=== PATIENT | female | born 1990 | race African-American/Black ===

== ENCOUNTER 2023-10-27 01:31 | Day surgery (SDC) | payer OTHER ==
[2023-10-27 01:51] VITALS: BMI 31.1
[2023-10-27] MEDS ORDERED: hydrALAZINE 20 MG/ML VIAL SLOW IVP PRN (02:09)
[2023-10-27 02:45] LABS: Bilirubin Neg (Negative); Blood, Urine Negative (Negative); Clarity Clear (Clear); Glucose, Urine (Dipstick) Normal (Negative); Ketone, Urine Negative (Negative); Leukocyte 100 (Negative); Nitrite Negative (Negative); Protein, Urine (Dipstick) Negative (Neg-Trace)
[2023-10-27 02:53] LABS: Bacteria/HPF None Seen HPF (None Seen); CAUTI Indications for Culture Pregnancy; RBC/HPF None Seen HPF (0-3); Squamous Epithelial 0-3 HPF (0-3)
[2023-10-27 02:54] LABS: Urine Culture Reflex Yes Yes
[2023-10-27 03:06] LABS: Creatinine, Urine 60.48 mg/dL (47-110); Protein, Urine Random Quant Less than 10 mg/dL (1-14)
[2023-10-27 03:20] LABS: #Basophils 0.01 10x3/uL (0.0-0.2); #Eosinphils 0.03 10x3/uL (0.0-0.5); #Monocytes 0.68 10x3/uL (0.0-1.1); #Neutrophils 3.96 10x3/uL (1.5-8.4); %Basophils 0.2 % (0.0-2.0); %Eosinophils 0.5 % (0.0-6.0); %Lymphocytes 20.4 % (18.0-47.0); %Monocytes 11.5 % (0.0-10.0); %Neutrophils 66.9 % (40.0-75.0); Hematocrit 24.7 % (34.9-44.5); Hemoglobin 8.2 g/dL (12.0-15.5); Mean Corpuscular HGB CONC 33.2 g/dL (32.0-36.0); Mean Corpuscular Hemoglobin 26.5 pg (27.0-33.0); Mean Corpuscular Volume 79.9 fl (81.6-98.3); Platelet Count 269 10x3/uL (150-450); Red Blood Cell (RBC) Count 3.09 10x6/uL (3.90-5.03); White Blood Cell (WBC) Count 5.9 10x3/uL (3.5-10.5)
[2023-10-27 03:22] LABS: ALT (SGPT) 9 U/L (8-55); AST (SGOT) 17 U/L (5-34); Albumin 2.4 g/dL (3.5-5.0); Alkaline Phosphatase 125 U/L (40-110); Anion Gap 11 mmol/L (10-20); BUN (Urea Nitrogen) 4 mg/dL (7.0-18.7); Bilirubin, Total 0.2 mg/dL (0.2-1.2); Calc. Creatinine Clearance 195 mL/min (70-130); Calcium 8.5 mg/dL (7.8-10.44); Carbon Dioxide 19 mmol/L (22-29); Chloride 108 mmol/L (98-107); Estimated GFR 125; Globulin 3.8 g/dL (2.4-3.5); Glucose 100 mg/dL (70-105); Potassium 3.4 mmol/L (3.5-5.1); Protein, Total 6.2 g/dL (6.0-8.3); Sodium 135 mmol/L (136-145)
== END 2023-10-27 03:49 | disposition home or self-care (01) ==
LOC: CSHLD/OP 01:31
PROVIDERS: ATTEND Family Medicine
DX: O99.891 Other specified diseases and conditions complicating pregnancy (principal); O47.03 False labor before 37 completed weeks of gestation, third trimester; R51.9 Headache, unspecified; O34.13 Maternal care for benign tumor of corpus uteri, third trimester; D25.9 Leiomyoma of uterus, unspecified; O99.013 Anemia complicating pregnancy, third trimester; O00.01 Abdominal pregnancy with intrauterine pregnancy; O09.213 Supervision of pregnancy with history of pre-term labor, third trimester; O10.913 Unspecified pre-existing hypertension complicating pregnancy, third trimester; Z91.018 Allergy to other foods; Z3A.36 36 weeks gestation of pregnancy
CPT/HCPCS: 36415; 80053; 81001; 82570; 84156; 85025; 87086; 99285

== ENCOUNTER 2023-10-28 23:30 | Day surgery (SDC) | payer OTHER ==
[2023-10-29] MEDS ORDERED: hydrALAZINE 20 MG/ML VIAL SLOW IVP PRN (00:17)
[2023-10-29 00:58] LABS: Creatinine, Urine 66.62 mg/dL (47-110); Protein, Urine Random Quant Less than 10 mg/dL (1-14)
[2023-10-29 01:09] LABS: #Basophils 0.01 10x3/uL (0.0-0.2); #Eosinphils 0.03 10x3/uL (0.0-0.5); #Monocytes 0.63 10x3/uL (0.0-1.1); #Neutrophils 4.06 10x3/uL (1.5-8.4); %Basophils 0.2 % (0.0-2.0); %Eosinophils 0.5 % (0.0-6.0); %Lymphocytes 19.1 % (18.0-47.0); %Monocytes 10.7 % (0.0-10.0); %Neutrophils 69.2 % (40.0-75.0); Hematocrit 25.1 % (34.9-44.5); Mean Corpuscular HGB CONC 31.9 g/dL (32.0-36.0); Mean Corpuscular Hemoglobin 25.6 pg (27.0-33.0); Mean Corpuscular Volume 80.2 fl (81.6-98.3); Mean Platelet Volume 10.4 fl (7.4-10.4); Platelet Count 243 10x3/uL (150-450); RBC Distribution Width 15.2 % (11.5-14.5); Red Blood Cell (RBC) Count 3.13 10x6/uL (3.90-5.03); White Blood Cell (WBC) Count 5.9 10x3/uL (3.5-10.5)
[2023-10-29 01:12] LABS: ALT (SGPT) 9 U/L (8-55); AST (SGOT) 18 U/L (5-34); Albumin 2.4 g/dL (3.5-5.0); Alkaline Phosphatase 125 U/L (40-110); Anion Gap 12 mmol/L (10-20); BUN (Urea Nitrogen) 4 mg/dL (7.0-18.7); Bilirubin, Total 0.3 mg/dL (0.2-1.2); Calc. Creatinine Clearance 0 mL/min (70-130); Calcium 8.5 mg/dL (7.8-10.44); Carbon Dioxide 19 mmol/L (22-29); Chloride 108 mmol/L (98-107); Estimated GFR 124; Globulin 3.8 g/dL (2.4-3.5); Glucose 110 mg/dL (70-105); Potassium 3.3 mmol/L (3.5-5.1); Protein, Total 6.2 g/dL (6.0-8.3); Sodium 136 mmol/L (136-145)
[2023-10-29] MEDS: Acetaminophen 500 MG TAB PO SCH (01:34)
[2023-10-29] MEDS: Potassium Chloride 20 MEQ TAB PO SCH (01:34)
== END 2023-10-29 02:20 | disposition home or self-care (01) ==
LOC: CSHLD/OP 23:30
PROVIDERS: ATTEND Family Medicine
DX: R51.9 Headache, unspecified (principal); O10.913 Unspecified pre-existing hypertension complicating pregnancy, third trimester; O34.13 Maternal care for benign tumor of corpus uteri, third trimester; D25.9 Leiomyoma of uterus, unspecified; O99.013 Anemia complicating pregnancy, third trimester; O00.01 Abdominal pregnancy with intrauterine pregnancy; Z3A.36 36 weeks gestation of pregnancy; Z91.018 Allergy to other foods
CPT/HCPCS: 36415; 80053; 82570; 84156; 85025

== ENCOUNTER 2023-11-02 10:31 | Day surgery (SDC) | payer OTHER ==
[2023-11-02] MEDS ORDERED: Acetaminophen 500 MG TAB ONE (10:48)
[2023-11-02] MEDS ORDERED: Iron Sucrose Complex 500 MG in Sodium Chloride 0.9% 250 ML 250 ML IVPB SCH (11:00)
[2023-11-02] MEDS ORDERED: Acetaminophen 500 MG TAB PO SCH (11:00)
== END 2023-11-02 15:10 | disposition home or self-care (01) ==
LOC: CSHSDC 10:31
PROVIDERS: ATTEND Family Medicine
DX: O99.019 Anemia complicating pregnancy, unspecified trimester (principal); Z3A.00 Weeks of gestation of pregnancy not specified; Z91.018 Allergy to other foods
CPT/HCPCS: 96365; 96366; J1756; J7050

== ENCOUNTER 2023-11-07 19:00 | Inpatient (IN) | payer OTHER ==
[2023-11-07] MEDS ORDERED: Misoprostol 200 MCG TAB PR PRN (22:52)
[2023-11-07] MEDS ORDERED: hydrALAZINE 20 MG/ML VIAL SLOW IVP PRN (22:52)
[2023-11-07] MEDS ORDERED: Ibuprofen 800 MG TAB PO PRN (22:52)
[2023-11-07] MEDS ORDERED: Tranexamic Acid 1,000 MG/10 ML VIAL IVP PRN (22:52)
[2023-11-07] MEDS ORDERED: Lidocaine 1% (PF) 30 ML VIAL SC PRN (22:52)
[2023-11-07] MEDS ORDERED: Acetaminophen 500 MG TAB PO PRN (22:52)
[2023-11-07] MEDS ORDERED: Promethazine HCl 25 MG/ML VIAL IM PRN (22:52)
[2023-11-07] MEDS ORDERED: Carboprost 250 MCG/ML AMP IM PRN (22:52)
[2023-11-07] MEDS ORDERED: Ondansetron PF 4 MG/2 ML Vial IVP PRN (22:52)
[2023-11-07] MEDS ORDERED: Diphenoxylate HCl/Atropine Tablet PO PRN (22:52)
[2023-11-07 22:55] VITALS: BMI 30.2
[2023-11-07] MEDS ORDERED: Oxytocin 30 units/NS 500 ML 500 ML IV SCH ×3 (23:00)
[2023-11-08 00:03] LABS: Hematocrit 29.2 % (34.9-44.5); Hemoglobin 9.2 g/dL (12.0-15.5); Mean Corpuscular HGB CONC 31.5 g/dL (32.0-36.0); Mean Corpuscular Hemoglobin 25.8 pg (27.0-33.0); Mean Platelet Volume 10.7 fL (7.4-10.4); Platelet Count 295 10x3/uL (150-450); RBC Distribution Width 17.8 % (11.5-14.5); Red Blood Cell (RBC) Count 3.56 10x6/uL (3.90-5.03); White Blood Cell (WBC) Count 5.9 10x3/uL (3.5-10.5)
[2023-11-08] MEDS: Penicillin G Potassium 5 MILL.UNITS in Sodium Chloride 0.9% 100 ML IVPB SCH (00:15)
[2023-11-08] MEDS: Misoprostol 100 MCG TAB VAG SCH (00:19)
[2023-11-08 00:26] LABS: Syphilis Antibody Nonreactive (Nonreactive); Syphilis Antibody Index 0.06 S/CO (<1.00 Non-Reactive)
[2023-11-08 00:27] LABS: HBsAg Index 0.19 S/CO (0-0.99); Hep B Surf Ag - L&D Non-Reactive S/CO (NonReactive)
[2023-11-08] MEDS: Penicillin G 2.5 MILL.units 2.5 MILL.UNITS in Premix 1 BAG IVPB SCH (04:01)
[2023-11-08] MEDS: Lactated Ringer's 1,000 ML IV SCH (08:09)
[2023-11-08] MEDS: fentaNYL 50 mcg/mL 1 mL Vial SLOW IVP PRN (13:02)
[2023-11-08] MEDS: fentaNYL/Ropivacaine Epidural 100 ML ONE (16:50)
[2023-11-08] MEDS ORDERED: Naloxone HCl 0.4 mg/ml Vial IVP PRN ×2 (17:06)
[2023-11-08] MEDS ORDERED: diphenhydrAMINE 50 MG/ML VIAL IVP PRN (17:06)
[2023-11-08] MEDS ORDERED: Moisturizing Cream (Eucerin) 113 GM JAR TOP PRN (17:06)
[2023-11-08] MEDS ORDERED: Promethazine HCl 25 MG/ML VIAL IM PRN (17:06)
[2023-11-08] MEDS ORDERED: ePHEDrine Sulfate 50 MG/10 ML VIAL SLOW IVP PRN (17:06)
[2023-11-08] MEDS ORDERED: Lactated Ringer's 500 ML IV PRN (17:06)
[2023-11-08] MEDS ORDERED: Ondansetron PF 4 MG/2 ML Vial IVP PRN (17:06)
[2023-11-08] MEDS ORDERED: Communication Order-Pharmacy FS SCH (17:15)
[2023-11-08] MEDS ORDERED: fentaNYL 2 mcg/Ropivacaine 0.2% Epidural 100 ML CADD EPIDURAL SCH (17:15)
[2023-11-08] MEDS ORDERED: hydrALAZINE 20 MG/ML VIAL SLOW IVP PRN (22:01)
[2023-11-08] MEDS ORDERED: Bisacodyl 10 MG SUPP PR PRN (22:01)
[2023-11-08] MEDS ORDERED: Boostrix 0.5 ML (Tdap) VIAL (>/=7 yrs of age) IM ONE (22:01)
[2023-11-08] MEDS ORDERED: Lanolin Ointment 7 GM TUBE TOP PRN (22:01)
[2023-11-08] MEDS ORDERED: Preparation H Ointment 28 GM TUBE PR PRN (22:01)
[2023-11-08] MEDS ORDERED: Milk Of Magnesia 30 ML UDCUP PO PRN (22:01)
[2023-11-08] MEDS ORDERED: Benzocaine-Menthol 82.5 ML CAN TOP PRN (22:01)
[2023-11-08] MEDS: Ibuprofen 800 MG TAB PO SCH (23:42)
[2023-11-09] MEDS: Methylergonovine 0.2 MG/ML VIAL ONE (01:24)
[2023-11-09] MEDS: Carboprost 250 MCG/ML AMP ONE (01:24)
[2023-11-09 04:17] LABS: Hematocrit 25.9 % (34.9-44.5); Hemoglobin 8.3 g/dL (12.0-15.5); Platelet Count 242 10x3/uL (150-450)
[2023-11-09] MEDS: Ibuprofen 800 MG TAB PO SCH (07:48)
[2023-11-09] MEDS: Ferrous Sulfate 325 MG TAB PO SCH (07:48)
[2023-11-09] MEDS: Docusate 100 MG CAP PO SCH (07:48)
[2023-11-09] MEDS: Acetaminophen 325 MG TAB PO PRN (10:22)
[2023-11-10 08:04] VITALS: TEMP 97.6
[2023-11-10 10:16] VITALS: BP 125/83
== END 2023-11-10 12:00 | disposition home or self-care (01) | DRG 806 ==
LOC: CSHLD 19:48 → CSHPP 11-09 00:15
PROVIDERS: ADMIT Family Medicine; ATTEND Family Medicine
PROC: 10E0XZZ Delivery of Products of Conception, External Approach (ICD-10-PCS; principal; 2023-11-08)
PROC: 0HQ9XZZ Repair Perineum Skin, External Approach (ICD-10-PCS; 2023-11-08)
DX: O10.92 Unspecified pre-existing hypertension complicating childbirth (principal); D62 Acute posthemorrhagic anemia; Z37.0 Single live birth; O76 Abnormality in fetal heart rate and rhythm complicating labor and delivery; Z79.899 Other long term (current) drug therapy; Z79.82 Long term (current) use of aspirin; Z91.018 Allergy to other foods; Z3A.38 38 weeks gestation of pregnancy; O99.02 Anemia complicating childbirth; O70.0 First degree perineal laceration during delivery; O62.3 Precipitate labor; D50.9 Iron deficiency anemia, unspecified; O99.824 Streptococcus B carrier state complicating childbirth
CPT/HCPCS: 51702; 85014; 85018; 85027; 85049; 86780; 86850; 86900; 86901; 87340; 88307; J2540; J3010; J3490; J7120